=== PATIENT | female | born 1945 | race Caucasian/White ===

== ENCOUNTER 2016-06-05 14:25 | Emergency (ER) | payer MEDICARE, BC ==
--- NOTE | ~2016-06-05 | CR21 ---
[facility]. [facility] A Service of [facility] & [facility] RADIOLOGY TEXT RESULTS PATIENT: KISHAN MORA LOCATION: SED : 47 UNIT #: [id number] AGE: [address]: Lise Sarkar APRN SEX: F ORDER DR: [id number] [place] [id number] MR#: [id number] Acc #: [id number] NAME: KISHAN MORA : 1945 SEX: F STUDY DATE/TIME: 06/05/2016 15:04 UNIT: SED ROOM: STUDY DESCRIPTION: CR Ankle Min 3 Views Rt Attending Physician: Lise Sarkar A.P.R.N. Ordering Physician: Lise Krishnamurthy A.P.R.N. Primary Care Physician: Roland Leon M.D. MEDICAL IMAGING REPORT This report is preliminary unless electronic signature is present. EXAM Right ankle series 06/05/2016 HISTORY 70-year-old female in the ED complaining of persistent left lower leg and ankle pain after a slip and fall injury about 1 week ago. TECHNIQUE Three-view right ankle series. FINDINGS There is a nondisplaced oblique fracture across the distal fibular metaphysis just above the ankle mortise. No other ankle fracture is seen. Soft tissue swelling surrounds the ankle, greatest laterally, and there was soft tissue edema throughout the visualized lower leg. IMPRESSION Nondisplaced distal fibular fracture. Dictated by... Wilmer Allison M.D. THIS IS AN ELECTRONICALLY VERIFIED REPORT Wilmer Allison M.D. at 06/05/2016 10:42 PM ZAN/quentin TD: 06/05/2016 20:56 JOB #: [id number] MEDICAL IMAGING REPORT Page 1 of 1
--- NOTE | ~2016-06-05 | CR253 ---
[facility]. [facility] A Service of [facility] & [facility] RADIOLOGY TEXT RESULTS PATIENT: KISHAN MORA LOCATION: SED : 47 UNIT #: [id number] AGE: [address]: Lise Sarkar APRN SEX: F ORDER DR: [id number] [place] [id number] E MR#: [id number] Acc #: [id number] NAME: KISHAN MORA : 1945 SEX: F STUDY DATE/TIME: 06/05/2016 15:04 UNIT: SED ROOM: STUDY DESCRIPTION: CR Tibia and Fibula 2 Views Rt Attending Physician: Lise Sarkar A.P.R.N. Ordering Physician: Lise Krishnamurthy A.P.R.N. Primary Care Physician: Roland Leon M.D. MEDICAL IMAGING REPORT This report is preliminary unless electronic signature is present. EXAM Right tibia-fibula, limited, 06/05/2016 HISTORY 70-year-old female in the ED complaining of right lower leg and ankle pain and soft tissue swelling after a slip and fall injury 1 week ago. TECHNIQUE AP and lateral radiographs of the mid and proximal right tibia and fibula. FINDINGS There is a nondisplaced oblique fracture extending across the neck of the proximal fibula at the knee. No other fracture of the mid or proximal tibia and fibula is demonstrated. Ankle series is reported separately. IMPRESSION Nondisplaced proximal fibula fracture. Dictated by... Wilmer Allison M.D. THIS IS AN ELECTRONICALLY VERIFIED REPORT Wilmer Allison M.D. at 06/05/2016 10:42 PM ZAN/quentin TD: 06/05/2016 21:04 JOB #: [id number] MEDICAL IMAGING REPORT Page 1 of 1
[~2016-06-05 14:25] MED LIST: ALDACTONE25 MG PO; BUMETANIDE2 M1 PO; CLARITIN10 M3 PO; ENALAPRIL MALEA20 MG PO; LORAZEPAM1 MG PO; METOPROLOL TAR100 MG PO; NIFEDIPINE ER90 M1 PO; PRILOSEC PO; ZOFRAN ODT4 MG PO
== END 2016-06-05 16:58 | disposition home or self-care (01) ==
LOC: SED 14:25
DX: S82.831A Other fracture of upper and lower end of right fibula, initial encounter for closed fracture (principal); F41.9 Anxiety disorder, unspecified; W18.30XA Fall on same level, unspecified, initial encounter; Y92.009 Unspecified place in unspecified non-institutional (private) residence as the place of occurrence of the external cause
CPT/HCPCS: 29515; 73590; 73610; 99284